=== PATIENT | male | born 1990 | race American Indian/Alaskan Native ===

== ENCOUNTER 2018-07-08 19:20 | Emergency (ER) | payer OTHER ==
[2018-07-08 19:36] VITALS: BP 139/85
[2018-07-08 20:17] LABS: Bilirubin,Urine NEG (Negative); Blood,Urine NEG (Negative); Color,Urine Yellow (Yellow); Mucus,Urine 2+ /HPF; Protein,Urine <15 mg/dL mg/dL (Negative); Urobilinogen,Urine < 2.0 mg/dL (<2.0)
--- NOTE | 2018-07-09 01:38 | Emergency Department Report ---
ED Male HPI - General Chief complaint: Abdominal Pain Stated complaint: SHARP PAIN IN STOMACH Source: patient Mode of arrival: Ambulatory Limitations: No Limitations - History of Present Illness Initial comments: This is a 28-year-old -French male who presents to the emergency room with dysuria and penile discharge since yesterday. Patient states he had a few episodes of abdominal pain last night which has now resolved. Patient states he recently got out of intermediate and had intercourse with his children's mother has started having symptoms yesterday. Denies testicular pain or swelling, back pain, fever, frequency, and urgency MD Complaint: penile discharge, dysuria Onset/Timin -: days(s) Location: penis Radiation: none Severity: moderate Severity scale (0 -10): 6 Quality: burning Consistency: constant Improves with: none Worsens with: urination new sexual partner denies other symptoms - Related Data Sexually active: Yes Previous Rx's Medication Instructions Recorded Last Taken Type DOXYCYCLINE Hyclate [Vibramycin 100 mg PO Q12HR #14 capsule 07/09/18 Unknown Rx CAP] Allergies Allergy/AdvReac Type Severity Reaction Status Date / Time No Known Allergies Allergy Verified 07/08/18 19:29 ED Review of Systems ROS: Stated complaint: SHARP PAIN IN STOMACH Other details as noted in HPI Constitutional: denies: chills, fever Respiratory: denies: cough, shortness of breath, wheezing Cardiovascular: denies: chest pain, palpitations Gastrointestinal: abdominal pain. denies: nausea, diarrhea Genitourinary: dysuria, discharge. denies: urgency Musculoskeletal: denies: back pain, joint swelling, arthralgia Skin: denies: rash, lesions Neurological: denies: headache, weakness, paresthesias Psychiatric: denies: anxiety, depression ED Past Medical Hx - Social History Smoking Status: Current Every Day Smoker Substance Use Type: Alcohol - Medications Home Medications: Home Medications Medication Instructions Recorded Confirmed Last Taken Type DOXYCYCLINE Hyclate [Vibramycin 100 mg PO Q12HR #14 capsule 07/09/18 Unknown Rx CAP] ED Physical Exam - General Limitations: No Limitations General appearance: alert, in no apparent distress - Respiratory Respiratory exam: Present: normal lung sounds bilaterally. Absent: respiratory distress - Cardiovascular Cardiovascular Exam: Present: regular rate, normal rhythm. Absent: systolic murmur, diastolic murmur, rubs, gallop - GI/Abdominal GI/Abdominal exam: Present: soft, normal bowel sounds. Absent: distended, tenderness, guarding, rebound, rigid, organomegaly, mass, bruit, pulsatile mass - exam: Present: urethral discharge, circumcision. Absent: testicular tenderness, scrotal swelling, vertical testicular lie External exam: Present: normal external exam - Back Exam Back exam: Absent: CVA tenderness (R), CVA tenderness (L) - Neurological Exam Neurological exam: Present: alert, oriented X3, normal gait - Psychiatric Psychiatric exam: Present: normal affect, normal mood - Skin Skin exam: Present: warm, dry, intact, normal color. Absent: rash ED Course Vital Signs 07/08/18 07/08/18 19:28 19:35 Temperature 98.1 F 98.1 F Pulse Rate 84 80 Respiratory 18 18 Rate Blood Pressure 139/85 139/85 O2 Sat by Pulse 100 100 Oximetry ED Medical Decision Making - Lab Data Lab Results 07/08/18 Range/Units 19:51 Urine Color Yellow (Yellow) Urine Turbidity Slightly-cloudy (Clear) Urine pH 7.0 (5.0-7.0) Ur Specific [place] 1.020 (1.003-1.030) Urine Protein <15 mg/dl (Negative) mg/dL Urine Glucose (UA) Neg (Negative) mg/dL Urine Ketones Tr (Negative) mg/dL Urine Blood Neg (Negative) Urine Nitrite Neg (Negative) Urine Bilirubin Neg (Negative) Urine Urobilinogen < 2.0 (<2.0) mg/dL Ur Leukocyte Esterase Mod (Negative) Urine WBC (Auto) 79.0 H (0.0-6.0) /HPF Urine RBC (Auto) 6.0 (0.0-6.0) /HPF U Epithel Cells (Auto) < 1.0 (0-13.0) /HPF Urine Mucus 2+ /HPF - Medical Decision Making This is a 28-year-old -French male who presents with penile irritation and discharge for 2 days. Patient was examined by me. Vitals are stable and in no acute distress. A urinalysis and gonorrhea and chlamydia obtained. Empirically treated with Rocephin 250 mg IM and azithromycin 1 g by mouth. Start doxycycline for urethritis. Instructed to follow up in 3-5 days for pend ing lab results. Discharged home in stable condition. Discussed prevention options. F/U with PCP or Health Department. Critical care attestation.: If time is entered above; I have spent that time in minutes in the direct care of this critically ill patient, excluding procedure time. ED Disposition Clinical Impression: Penile discharge, Dysuria, Exposure to STD, Urethritis Disposition: TO HOME OR SELFCARE Is pt being admited?: No Does the pt Need Aspirin: No Condition: Stable Instructions: Safe Sex (ED), Sexually Transmitted Diseases (ED), Gonococcal Urethritis (ED) Additional Instructions: For course of antibiotics as prescribed. Avoid drinking alcohol while taking antibiotics and for 24 hours after completion. Continue safe sexual intercourse. Follow up with Primary Care Provider or health department. Prescriptions: DOXYCYCLINE Hyclate [Vibramycin CAP] 100 mg PO Q12HR #14 capsule Referrals: NIKUNJ PLASCENCIA MD [Primary Care Provider] - 3-[address] [facility] [place] [Outside] - 3-5 Days [facility] [Outside] - 3-5 Days Forms: Work/School Release Form(ED), STI Treatment and Prevention Time of Disposition: 01:46
[2018-07-09] MEDS ORDERED: XYLOCAINE 1% MPF 5 mL INFILTRATI ONE (01:46)
[2018-07-09] MEDS ORDERED: ROCEPHIN IM ONE (01:46)
[2018-07-09] MEDS ORDERED: ZITHROMAX PO ONE (01:46)
== END 2018-07-09 03:30 | disposition home or self-care (01) ==
LOC: ED 19:20
DX: Z20.2 Contact with and (suspected) exposure to infections with a predominantly sexual mode of transmission (principal); N34.2 Other urethritis; F17.200 Nicotine dependence, unspecified, uncomplicated
CPT/HCPCS: 81001; 96372; 99283; J0696